=== PATIENT | male | born 1960 | race Caucasian/White ===

== ENCOUNTER 2024-04-28 16:52 | Observation (INO) ==
[2024-04-28 18:09] LABS: Basophils # (auto) 0.01 K/uL (0.00-0.20); Basophils % (auto) 0.1 %; Eosinophils # (auto) 0.05 K/uL (0.00-0.50); Eosinophils % (auto) 0.6 %; Hematocrit (blood only) 46.3 % (42.0-52.0); Hemoglobin 15.9 g/dl (14.0-18.0); Immature Granulocytes # (auto) 0.03 K/uL (0.01-0.20); Immature Granulocytes % (auto) 0.4 %; Lymphocytes # (auto) 2.66 K/uL (1.20-3.40); Lymphocytes % (auto) 32.4 %; Mean Corpuscular Hemoglobin 31.7 pg (25.0-34.0); Mean Corpuscular Hgb Conc 34.3 g/dL (32.0-36.0); Mean Corpuscular Volume 92.2 fL (80.0-100.0); Mean Platelet Volume 9.9 fL (9.4-12.4); Monocytes # (auto) 0.83 K/uL (0.11-0.59); Monocytes % (auto) 10.1 %; Neutrophils # (auto) 4.63 K/uL (1.40-6.50); Neutrophils % (auto) 56.4 %; Platelet Count 214 K/uL (130-400); RDW Coefficient of Variation 12.7 % (11.5-14.5); RDW Standard Deviation 42.7 fL (36.4-46.3); Red Blood Count 5.02 M/uL (4.70-6.10); White Blood Count 8.21 K/ul (4.8-10.8)
[2024-04-28 18:30] LABS: Albumin Globulin Ratio 1.9 (0.9-2); Albumin Level 4.4 gm/dl (3.4-5.0); BUN Creatinine Ratio 14.6 (10-20); Bilirubin,Total 1.4 mg/dl (0.2-1.0); Calcium 9.6 mg/dl (8.6-10.3); Creatinine Clr Calc Pharmacy 82.7 ml/min; Globulin 2.3 gm/dl (2.5-4.0); Potassium 3.8 mmol/L (3.5-5.1); Total Protein 6.7 gm/dl (6.0-8.3)
--- NOTE | 2024-04-28 18:40 | XRay Report ---
XR chest 1V not portable HISTORY: 64 years-old Male Chest pain, nonspecific COMPARISON: 09/11/2022 TECHNIQUE: PA view of the chest FINDINGS: Cardiomediastinal and hilar silhouettes are unchanged. No pneumothorax, pleural effusion, airspace co nsolidation or pulmonary edema. Mild linear left basilar atelectasis versus scarring. The bones appea r grossly intact. IMPRESSION: No acute process of the chest. ACT 112: Negative or not required by law. The above report was generated using voice recognition software. It may contain grammatical, syntax o r spelling errors. Electronically signed by: Anurag Quinteros M.D. 04/28/2024 6:39 PM
--- NOTE | 2024-04-28 18:42 | Emergency Department Note ---
Impression & Plan Chest pain ADMIT ED Provider Note HPI: History obtained from patient. The patient is a 64-year-old gentleman with history of atrial fibrillation, currently on Xarelto, who presents the emergency department for cardiac evaluation. Patient states that he had an outpatient appointment this morning at the [facility] for second opinion on whether or not he should get a cardiac ablation. Patient states that they did some lab work as part of his appointment today including a troponin level. Patient states he was contacted when he was driving home from [place] to [place] that his troponin level was elevated and he should go to the ER to be assessed. Patient states he has had some intermittent chest pain over the past 3 to 4 weeks. He states it does seem to correlate with exertion. On arrival here to the ED the patient is hemodynamically stable, he is not having any chest discomfort on my initial evaluation. Patient otherwise appears to be in no acute distress. ROS: - Per HPI Differential Diagnosis: Acute coronary syndrome, stable angina, musculoskeletal chest discomfort, atrial fibrillation with RVR, SVT, ventricular tachycardia, myocarditis, amongst other potential pathologies. *Outpatient medications and allergy history reviewed. PE: General: Alert HEENT: Normocephalic, trachea midline Eyes: Extraocular eye movement is intact, no scleral erythema Pulmonary: Clear to auscultation bilaterally, no wheezing Cardio: Regular rate and irregular rhythm GI: Abdomen is soft to palpation : No suprapubic tenderness MSK: No evidence of trauma or malformation of the extremities, no edema Skin: No evidence of rash Neuro: Alert, no focal deficits Psychiatric: Cooperative INDEPENDENT INTERPRETATIONS: monitoring coordinator: (As interpreted by myself): - An order was placed for continuous cardiac monitoring - Patient was noted to be in atrial fibrillation with a rate of 90 EKG: (As interpreted by myself): Rate: 93 Rhythm: Atrial fibrillation Intervals: Within normal limits ST changes: No ST elevation Time: 1741 Chest x-ray: (As interpreted by myself): No acute disease Interventions provided in ED: -Aspirin Medical Decision Making: IV was established and lab work obtained, patient was placed on front desk monitor. Lab work shows no leukocytosis, hemoglobin is normal, platelet count is normal, CMP does not show any evidence of any critical findings, troponin is noted to be negative. EKG per my interpretation shows atrial fibrillation that is rate controlled without any acute ischemic changes. Upon further history the patient states that he has had chest pain for the past several weeks and he states it does worsen with exertion. He tells me that in the outpatient setting today in [place] his troponin was elevated. He is on Eliquis, I have low suspicion for PE. Given the exertional nature of the patient's pain in addition to his reported history of elevated troponin earlier today, I do feel that he would benefit from admission for further testing and management. He tells me he does not remember the last time he had a stress test done. [facility] hospitalist service was consulted for admission, case was discussed with Dr. Hays, patient was placed for admission in stable condition. Consultants/Discussions held with other healthcare providers: -Hospitalist, Dr. Hays Disposition discussion held by myself with: -Patient Diagnosis: 1. Chest pain, acute Disposition: Admission Boo Goins DO Emergency Medicine Past Med/Surg History Problem List (Updated 04/29/24 @ 00:08 by Boo Goins DO) Chest pain (Acute) Elevated troponin GERD (gastroesophageal reflux disease) Dyspnea on exertion Fatigue Chest pain Hypertension Obesity (BMI 30-39.9) Hyperlipidemia LDL goal <70 Atrial fibrillation Medical History Atrial fibrillation Family History Other Family history non-contributory Social History Smoking Status: Never smoker Second Hand Exposure: No; Do You Dip or Chew Tobacco: No; Tobacco Cessation Education Requested by Patient: No Hx Alcohol Use: No Hx Substance Use: No Preferred Language: Khmer Communication Ability: Effective 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 Beliefs That Will Affect Care: None Current Living Situation: Spouse Other Information That Helps Us Care for You: No Feels Safe at Home: Yes Safety Concerns: Feels Safe At This Time Assistive Devices: Hearing Aid - Bilateral Allergies Allergies Allergy/AdvReac Type Severity Reaction Status Date / Time No Known Allergies Allergy Unverified 04/28/24 19:53 Home Meds Home Medications Medication Instructions Recorded Confirmed aspirin 81 mg tablet,delayed 81 mg PO QPM 04/28/24 04/28/24 release atorvastatin 80 mg tablet 80 mg PO HS 04/28/24 04/28/24 metoprolol succinate 50 mg 50 mg PO QAM 04/28/24 04/28/24 tablet,extended release 24 hr pantoprazole 40 mg tablet,delayed 40 mg PO QAM 04/28/24 04/28/24 release rivaroxaban 20 mg tablet (Xarelto) 20 mg PO QPM 04/28/24 04/28/24 Results & Data (ED) Vital Signs Vital Signs - 24 hr 04/28/24 17:11 04/28/24 19:05 04/28/24 19:15 Temperature 36.5 C Temperature Source Temporal Artery Scan Pulse Rate 107 H 18 L Pulse Rate [Left Radial] 94 H Pulse Rate from SpO2 Sensor Pulse Rhythm Regular Pulse Rhythm [Left Radial] Irregular Pulse Strength [Left Radial] Normal Respiratory Rate 18 18 17 Respiratory Effort / Characteristics Non-Labored Spontaneous Non-Labored Spontaneous Respiratory Depth Normal Normal Respiratory Pattern Regular Blood Pressure 126/74 Blood Pressure [Right Arm] 139/88 Blood Pressure Mean 91 Blood Pressure Mean [Right Arm] 105 Blood Pressure Position Sitting Blood Pressure Position [Right Arm] Lying Pulse Oximetry 98 95 97 Oxygen Delivery Method Room Air Room Air Room Air Sepsis Recent Fever Within 48 Hours No Sepsis New/Unexplained Change in Mental Status No Sepsis Action Taken by Nursing No Action Required 04/28/24 19:24 04/28/24 19:39 04/28/24 20:03 Temperature Temperature Source Pulse Rate 99 H 93 H 82 Pulse Rate [Left Radial] Pulse Rate from SpO2 Sensor 97 H 88 Pulse Rhythm Pulse Rhythm [Left Radial] Pulse Strength [Left Radial] Respiratory Rate 24 19 Respiratory Effort / Characteristics Respiratory Depth Respiratory Pattern Blood Pressure Blood Pressure [Right Arm] Blood Pressure Mean Blood Pressure Mean [Right Arm] Blood Pressure Position Blood Pressure Position [Right Arm] Pulse Oximetry 96 96 Oxygen Delivery Method Sepsis Recent Fever Within 48 Hours Sepsis New/Unexplained Change in Mental Status Sepsis Action Taken by Nursing 04/28/24 20:33 Temperature Temperature Source Pulse Rate 97 H Pulse Rate [Left Radial] Pulse Rate from SpO2 Sensor 98 H Pulse Rhythm Pulse Rhythm [Left Radial] Pulse Strength [Left Radial] Respiratory Rate 18 Respiratory Effort / Characteristics Respiratory Depth Respiratory Pattern Blood Pressure Blood Pressure [Right Arm] Blood Pressure Mean Blood Pressure Mean [Right Arm] Blood Pressure Position Blood Pressure Position [Right Arm] Pulse Oximetry 94 Oxygen Delivery Method Sepsis Recent Fever Within 48 Hours Sepsis New/Unexplained Change in Mental Status Sepsis Action Taken by Nursing Laboratory Data 04/28/24 17:40 04/28/24 17:40 Lab Results 04/28/24 Range/Units 17:40 WBC 8.21 (4.8-10.8) K/ul RBC 5.02 (4.70-6.10) M/uL Hgb 15.9 (14.0-18.0) g/dl Hct 46.3 (42.0-52.0) % MCV 92.2 (80.0-100.0) fL MCH 31.7 (25.0-34.0) pg MCHC 34.3 (32.0-36.0) g/dL RDW Std Deviation 42.7 (36.4-46.3) fL RDW Coeff of Debbi 12.7 (11.5-14.5) % Plt Count 214 (130-400) K/uL MPV 9.9 (9.4-12.4) fL Immature Gran % (Auto) 0.4 % Neut % (Auto) 56.4 % Lymph % (Auto) 32.4 % [place] % (Auto) 10.1 % Eos % (Auto) 0.6 % Baso % (Auto) 0.1 % Neut # (Auto) 4.63 (1.40-6.50) K/uL Lymph # (Auto) 2.66 (1.20-3.40) K/uL [place] # (Auto) 0.83 H (0.11-0.59) K/uL Eos # (Auto) 0.05 (0.00-0.50) K/uL Baso # (Auto) 0.01 (0.00-0.20) K/uL Immature Gran # (Auto) 0.03 (0.01-0.20) K/uL PT 12.1 H (9.0-12.0) Seconds INR 1.1 (0.9-1.1) APTT 31 (21-31) Seconds PTT Ratio 1.2 Sodium 143 (136-145) mmol/L Potassium 3.8 (3.5-5.1) mmol/L Chloride 107 (98-107) mmol/L Carbon Dioxide 28 (21-32) mmol/L Anion Gap 8 (3-11) BUN 18 (6-23) mg/dl Creatinine 1.23 (0.6-1.4) mg/dl Est Cr Clr Drug Dosing 82.7 ml/min eGFR 65.97 BUN/Creatinine Ratio 14.6 (10-20) Glucose 106 H (70-99(Fasting)) mg/dl Calcium 9.6 (8.6-10.3) mg/dl Magnesium 2.3 (1.7-2.4) mg/dl Total Bilirubin 1.4 H (0.2-1.0) mg/dl AST 23 (13-39) U/L ALT 23 (7-52) U/L Alkaline Phosphatase 63 (34-104) U/L Troponin I High Sens 3.6 (0-20) pg/ml Total Protein 6.7 (6.0-8.3) gm/dl Albumin 4.4 (3.4-5.0) gm/dl Globulin 2.3 L (2.5-4.0) gm/dl Albumin/Globulin Ratio 1.9 (0.9-2) Administered Medications Nitroglycerin (Nitroglycerin 2% Ointment 30gm Tube) 0.5 inch EXT Q6H [facility] Stop: 05/28/24 21:29 Last Admin: 04/28/24 21:44 Dose: 0.5 inch Documented By: JOSEPH Discontinued Medications Aspirin (Aspirin Chew 324 Mg) 324 mg PO NOW STA Stop: 04/28/24 19:33 Last Admin: 04/28/24 19:50 Dose: 324 mg Documented By: JOSEPH Nitroglycerin (Nitroglycerin 2% Ointment 30gm Tube) Confirm Administered Dose 18 inch EXT .STK-MED ONE Stop: 04/28/24 21:43 Last Admin: 04/28/24 21:50 Dose: Not Given Documented By: JOSEPH Rivaroxaban (Rivaroxaban 20 Mg Tab) 20 mg PO NOW STA Stop: 04/28/24 21:15 Last Admin: 04/28/24 21:54 Dose: 20 mg Documented By: JOSEPH Imaging Data Radiologist's Impression: Chest X-Ray 04/28/24 17:15 XR chest 1V not portable HISTORY: 64 years-old Male Chest pain, nonspecific COMPARISON: 09/11/2022 TECHNIQUE: PA view of the chest FINDINGS: Cardiomediastinal and hilar silhouettes are unchanged. No pneumothorax, pleural effusion, airspace consolidation or pulmonary edema. Mild linear left basilar atelectasis versus scarring. The bones appear grossly intact. IMPRESSION: No acute process of the chest. ACT 112: Negative or not required by law. The above report was generated using voice recognition software. It may contain grammatical, syntax or spelling errors. Electronically signed by: Anurag Quinteros M.D. 04/28/2024 6:39 PM Discharge Plan Visit Data Chief Complaint: Referred by Doctor Stated Complaint: BLOOD WORK REDO ED Provider: Boo Goins Discharge Problem: Chest pain Patient Disposition: Admitted As Inpatient Discharge Instructions Interventions: ED Discharge Assessment Last Done: 04/28/24 23:14 Discharge Problem: Chest pain Qualifiers: Chest pain type: unspecified Qualified Code(s): R07.9 - Chest pain, unspecified
[2024-04-28 18:43] LABS: INR 1.1 (0.9-1.1); Partial Thromboplastin Ratio 1.2; Partial Thromboplastin Time 31 Seconds (21-31); Prothrombin Time 12.1 Seconds (9.0-12.0)
[2024-04-28 18:52] LABS: Troponin I High Sensitivity 3.6 pg/ml (0-20)
[2024-04-28 18:54] LABS: Magnesium 2.3 mg/dl (1.7-2.4)
[2024-04-28] MEDS: ASPIRIN CHEW 324 MG PO STA (19:50)
--- NOTE | 2024-04-28 21:35 | History & Physical Report ---
Date of Service April 28, 2024 Assessment & Plan (1) Atrial fibrillation: (2) Hyperlipidemia LDL goal <70: (3) Obesity (BMI 30-39.9): (4) Hypertension: (5) Chest pain: (6) Fatigue: (7) Dyspnea on exertion: (8) GERD (gastroesophageal reflux disease): (9) Elevated troponin: Plan Elevated troponin/chest pain/dyspnea on exertion/chronic atrial fibrillation/EF 45%- The patient will be admitted to telemetry for serial cardiac enzymes, serial EKG's, cardiac rhythm monitoring and a 2-D echocardiogram with Dopplers. Troponin reportedly was 24 done at the [facility] earlier in the day today, however, is 3.6 on ED labs this evening, and will follow-up per protocol EKG shows atrial fibrillation with rate 93, left axis deviation, and no acute ST-T changes Schedule a stress echocardiogram for the morning Continue metoprolol succinate 50 mg every morning, Xarelto 20 mg every evening, and aspirin 81 mg every evening Patient was given aspirin 324 mg in the ED Start Nitropaste 0.5 mg every 6 hours anterior chest wall Hyperlipidemia- Continue atorvastatin 80 mg at bedtime GERD- Continue pantoprazole 40 mg every morning History of Present Illness Chief Complaint: The patient presents to the emergency department as a referral from Dr. Davy Dimas of [facility], where he had report of an elevated troponin to 24, that he heard about on his way home to [place], and was advised to come to an ED for assessment. Primary Care Provider: KIKA DELGADO The patient is a 64-year-old male with a known past medical history including atrial fibrillation on Xarelto, GERD, hypertension, hyperlipidemia and morbid obesity. He presents to the emergency department after being told that he had elevated troponin of 24, that was performed at [facility] this morning, due to his history of atrial fibrillation, chest pain, shortness of breath, dyspnea on exertion. He had gone to [facility] for second opinion regarding a potential ablation procedure. He had previously been seen by Dr. Ferrell of [facility] on 03/20/2024. He reports that he has had fatigue, and progressive shortness of breath with dyspnea on exertion over the past 2 to 3 weeks. He does report that he has had chest discomfort intermittently over the past few months. He has had and intentional 10 pound weight loss over the past 6 weeks, by eating less. Allergies Allergy/AdvReac Type Severity Reaction Status Date / Time No Known Allergies Allergy Unverified 04/28/24 19:53 Home Medications Medication Instructions Recorded Confirmed Type aspirin 81 mg tablet,delayed 81 mg PO QPM 04/28/24 04/28/24 History release atorvastatin 80 mg tablet 80 mg PO HS 04/28/24 04/28/24 History metoprolol succinate 50 mg 50 mg PO QAM 04/28/24 04/28/24 History tablet,extended release 24 hr pantoprazole 40 mg tablet,delayed 40 mg PO QAM 04/28/24 04/28/24 History release rivaroxaban 20 mg tablet (Xarelto) 20 mg PO QPM 04/28/24 04/28/24 History Past Med/Surg History Problem List (Updated 04/28/24 @ 21:31 by Alan Hays MD) Elevated troponin GERD (gastroesophageal reflux disease) Dyspnea on exertion Fatigue Chest pain Hypertension Obesity (BMI 30-39.9) Hyperlipidemia LDL goal <70 Atrial fibrillation Medical History Atrial fibrillation Family History Other Family history non-contributory Social History Smoking Status: Never smoker Preferred Language: Yoruba Feels Safe at Home: Yes Review of Systems Review of Systems: The patient denies palpitations, cough, lower extremity swelling, sore throat, fevers, chills, sweats, nausea, vomiting, diarrhea , constipation, abdominal pain, pelvic pain, blood in urine or stool, dysuria, urinary frequency or urgency, lightheadedness, dizziness, headache, memory loss, loss of consciousness, rash, abnormal bruising or bleeding, imbalance, focal or generalized weakness, numbness or tingling in arms or legs, generalized arthralgias or myalgias, back or neck pain, or night sweats. The review of systems is otherwise negative other than for that already noted above, and at least 10 systems have been reviewed. Physical Exam Physical Exam: The patient is awake, alert and oriented 3, well developed and well nourished, normocephalic and atraumatic, lying in bed and in no acute distress. HEENT--PERRL, EOMI, mucous membranes and oropharynx normal Neck--supple. No JVD. No bruits. Thyroid normal, trachea midline, no adenopathy. Heart--irregularly irregular with normal rate. No murmurs, rubs or gallops. Lungs--clear bilaterally, no respiratory distress, no accessory muscle use. Abdomen--normal bowel sounds and soft. Nontender. Nondistended. Obese Extremities--no cyanosis or clubbing. No edema. There are good distal pulses b/l. Dermatologic--normal skin turgor, normal color, no abnormal lymph nodes, no rash. Neurologic--cranial nerves II through XII grossly intact. Rheumatologic--normal range of motion. Psychiatric--normal affect. Results & Data Results & Data Vital Signs (Past 12 Hours) Vital Signs Temp Pulse Pulse Resp BP BP Pulse Ox 04/28/24 19:39 93 H 04/28/24 19:15 18 L 17 97 04/28/24 19:05 94 H 18 139/88 95 04/28/24 17:11 36.5 C 107 H 18 126/74 98 O2 Del Method 04/28/24 19:39 04/28/24 19:15 Room Air 04/28/24 19:05 Room Air 04/28/24 17:11 Room Air Laboratory Results Laboratory Results WBC 8.21 K/ul (4.8-10.8) 04/28/24 17:40 RBC 5.02 M/uL (4.70-6.10) 04/28/24 17:40 Hgb 15.9 g/dl (14.0-18.0) 04/28/24 17:40 Hct 46.3 % (42.0-52.0) 04/28/24 17:40 MCV 92.2 fL (80.0-100.0) 04/28/24 17:40 MCH 31.7 pg (25.0-34.0) 04/28/24 17:40 MCHC 34.3 g/dL (32.0-36.0) 04/28/24 17:40 RDW Std Deviation 42.7 fL (36.4-46.3) 04/28/24 17:40 RDW Coeff of Debbi 12.7 % (11.5-14.5) 04/28/24 17:40 Plt Count 214 K/uL (130-400) 04/28/24 17:40 MPV 9.9 fL (9.4-12.4) 04/28/24 17:40 Immature Gran % (Auto) 0.4 % 04/28/24 17:40 Neut % (Auto) 56.4 % 04/28/24 17:40 Lymph % (Auto) 32.4 % 04/28/24 17:40 [place] % (Auto) 10.1 % 04/28/24 17:40 Eos % (Auto) 0.6 % 04/28/24 17:40 Baso % (Auto) 0.1 % 04/28/24 17:40 Neut # (Auto) 4.63 K/uL (1.40-6.50) 04/28/24 17:40 Lymph # (Auto) 2.66 K/uL (1.20-3.40) 04/28/24 17:40 [place] # (Auto) 0.83 K/uL (0.11-0.59) H 04/28/24 17:40 Eos # (Auto) 0.05 K/uL (0.00-0.50) 04/28/24 17:40 Baso # (Auto) 0.01 K/uL (0.00-0.20) 04/28/24 17:40 Immature Gran # (Auto) 0.03 K/uL (0.01-0.20) 04/28/24 17:40 PT 12.1 Seconds (9.0-12.0) H 04/28/24 17:40 INR 1.1 (0.9-1.1) 04/28/24 17:40 APTT 31 Seconds (21-31) 04/28/24 17:40 PTT Ratio 1.2 04/28/24 17:40 Sodium 143 mmol/L (136-145) 04/28/24 17:40 Potassium 3.8 mmol/L (3.5-5.1) 04/28/24 17:40 Chloride 107 mmol/L (98-107) 04/28/24 17:40 Carbon Dioxide 28 mmol/L (21-32) 04/28/24 17:40 Anion Gap 8 (3-11) 04/28/24 17:40 BUN 18 mg/dl (6-23) 04/28/24 17:40 Creatinine 1.23 mg/dl (0.6-1.4) 04/28/24 17:40 Est Cr Clr Drug Dosing 82.7 ml/min 04/28/24 17:40 eGFR 65.97 04/28/24 17:40 BUN/Creatinine Ratio 14.6 (10-20) 04/28/24 17:40 Glucose 106 mg/dl (70-99(Fasting)) H 04/28/24 17:40 Calcium 9.6 mg/dl (8.6-10.3) 04/28/24 17:40 Magnesium 2.3 mg/dl (1.7-2.4) 04/28/24 17:40 Total Bilirubin 1.4 mg/dl (0.2-1.0) H 04/28/24 17:40 AST 23 U/L (13-39) 04/28/24 17:40 ALT 23 U/L (7-52) 04/28/24 17:40 Alkaline Phosphatase 63 U/L (34-104) 04/28/24 17:40 Troponin I High Sens 3.6 pg/ml (0-20) 04/28/24 17:40 Total Protein 6.7 gm/dl (6.0-8.3) 04/28/24 17:40 Albumin 4.4 gm/dl (3.4-5.0) 04/28/24 17:40 Globulin 2.3 gm/dl (2.5-4.0) L 04/28/24 17:40 Albumin/Globulin Ratio 1.9 (0.9-2) 04/28/24 17:40 Impressions Chest X-Ray 04/28/24 17:15 XR chest 1V not portable HISTORY: 64 years-old Male Chest pain, nonspecific COMPARISON: 09/11/2022 TECHNIQUE: PA view of the chest FINDINGS: Cardiomediastinal and hilar silhouettes are unchanged. No pneumothorax, pleural effusion, airspace consolidation or pulmonary edema. Mild linear left basilar atelectasis versus scarring. The bones appear grossly intact. IMPRESSION: No acute process of the chest. ACT 112: Negative or not required by law. The above report was generated using voice recognition software. It may contain grammatical, syntax or spelling errors. Electronically signed by: Anurag Quinteros M.D. 04/28/2024 6:39 PM Code Status & VTE Plan Code Status Full code VTE Prophylaxis Plan VTE Prophylaxis will be ordered: Yes PG Care Time/CCT Total # of Minutes Spent Total Time Spent with Patient: Total time spent is greater than 50% in coordination of care (as documented) at patient's floor/unit and/or counseling patient: Coding Level of Care Code 33404 INT INP/OBS CARE 3/75MIN Diagnoses Atrial fibrillation I48.91 Hyperlipidemia LDL goal <70 E78.5 Obesity (BMI 30-39.9) E66.9 Hypertension I10 Chest pain R07.9 Fatigue R53.83 Dyspnea on exertion R06.09 GERD (gastroesophageal reflux disease) K21.9 Elevated troponin R79.89
[2024-04-28] MEDS: NITROGLYCERIN 2% OINTMENT 30GM TUBE EXT SCH (21:44)
[2024-04-28] MEDS: NITROGLYCERIN 2% OINTMENT 30GM TUBE EXT ONE (21:50)
[2024-04-28] MEDS: RIVAROXABAN 20 MG TAB PO STA (21:54)
[2024-04-28] MEDS ORDERED: ONDANSETRON INJ 2 MG/ML 2 ML VIAL IV PRN (23:47)
[2024-04-28] MEDS ORDERED: ACETAMINOPHEN 325 MG TAB PO PRN (23:47)
[2024-04-29] MEDS: SODIUM CHLORIDE 0.9% 1,000 ML IV SCH (00:34)
--- OUTSIDE RECORDS SUMMARY | 2024-04-29 04:37 | External Medical Summary | Continuity of Care Document ---
Author Name Unknown Organization [facility] [address] Address [address] [place], [place] [id number] [id number] Date(s): 02/06/24 - 02/06/24 [facility] [address], [address] [place] [address] [phone] Discharge Disposition: Home or Self Care Attending Physician: CHRISTIAN Soria Sarah A Referring Physician: CHRISTIAN Soria Sarah A Allergies, Adverse Reactions, Alerts No Known Allergies Medications aspirin 81 mg oral delayed release tablet Start: 02/22/23 1:29:00 PM EDT, 1 tab, PO, Daily, Disp# 90 tab, Refills: 3, Pharmacy: [id number] Start Date: 02/22/23 Status: Ordered atorvastatin 80 mg oral tablet Start: 01/03/24 9:27:00 AM EDT, 1 tab, PO, qhs, Disp# 90 tab, Refills: 3, Pharmacy: [id number] Start Date: 01/03/24 Status: Ordered furosemide 20 mg oral tablet Start: 04/20/23 3:28:00 PM EDT, See Instructions, Disp# 90 tab, Refills: 3, 1 tab PO Daily for weight gain 2 lbs in 24 hours or 5 lbs in a week until back to baseline, Pharmacy: [id number] Start Date: 04/20/23 Status: Ordered Metoprolol Succinate ER 50 mg oral tablet, extended release Start: 10/29/23 9:22:00 AM EDT, 1 tab, PO, Daily, Disp# 90 tab, Refills: 3, Pharmacy: [id number] Start Date: 10/29/23 Status: Ordered pantoprazole 40 mg oral delayed release tablet Start: 08/07/23 10:24:00 AM EST, 1 tab, PO, Daily, Disp# 30 tab, Refills: 3, Pharmacy: [id number] Start Date: 08/07/23 Status: Ordered rivaroxaban 20 mg oral tablet Start: 02/22/23 1:52:00 PM EDT, 1 tab, PO, qPM, Disp# 90 tab, Refills: 3 Start Date: 02/22/23 Status: Ordered Zetia 10 mg oral tablet Start: 02/22/23 1:45:00 PM EDT, 1 tab, PO, Daily, Disp# 90 tab, Refills: 3, Pharmacy: [id number] Start Date: 02/22/23 Status: Ordered Problem List Condition Confirmation Course Effective Dates Status Health St atus Informant New onset of headaches after age 51 Confirmed Active Results Radiology Reports * Exam Date Time Procedure Performing Provider Status 02/06/24 8:54 AM Echo TransTHORacic TTE Complete w/ Con Barbara Ying; Final Notes: (Echo TransTHORacic TTE Complete w/ Cont) Reason For Exam: cad, afib Echo TransTHORacic TTE Complete w/ Cont Report Signatures Finalized by Dr. Nino Esqueda MD on 02/07/2024 12:45 PM [place] Act 112: Yes - Discussed with patient Summary 1. Technically difficult study due to patient body habitus; Successfully enhanced with Definity contrast per lab protocol for better endocardial definition. 2. Mildly dilated left ventricle for BSA. 3. Global hypokinesis with no regional wall motion abnormalities. 4. Mildly reduced systolic function, ejection fraction calculated by Biplane Almeida's method is 45-50%. 5. No left ventricular hypertrophy. 6. Moderately dilated left atrium. 7. Moderately dilated right ventricle with normal systolic function. 8. Moderate to severely dilated right atrium. 9. Mild prolapse of the posterior mitral valve leaflet with mild eccentric mitral regurgitation. 10. Unable to estimate the pulmonary artery systolic pressure due to insufficient TR. 11. Estimated pulmonary arterial mean pressure is 14 mmHg. 12. Compared to 02/2023 the LV fxn has declined from 55% to 45%. Patient Info Name: MANUEL HOWARD Age: 63 years : 1960 Gender: Male Ht: 180 cm Wt: 122 kg BSA: 2.52 m2 BP: 162 / 88 mmHg Heart Rhythm: Atrial Fibrillation Technical Quality: Good Exam Date: 02/06/2024 8:19 AM Exam Location: [facility] Patient Status: Outpatient Staff Ordering Physician: Sharla Soria [place] Supervisor: Barbara Escobar RDCS, RVT Attending Physician: Sharla Soria Study Info [facility] [id number] - [id number] - Indications I2510 - Coronary artery disease without angina pectoris I480 - Atrial fibrillation Procedure(s) * A complete two-dimensional, color flow and Doppler transthoracic echocardiogram was performed. * Failed 2D images were enhanced with Definity per lab protocol. * [place] Supervisor, Barbara Escobar RDCS, RVT, provided education about ultrasound enhancing agent to the patient. Exam Type: Cardiac Basic Left Ventricle Mildly dilated left ventricle for BSA. Global hypokinesis with no regional wall motion abnormalities. Mildly reduced systolic function, ejection fraction calculated by Biplane Almeida's method is 45-50%. No left ventricular hypertrophy. Indeterminate LV diastolic function. Right Ventricle Moderately dilated right ventricle with normal systolic function. TAPSE is normal, 2.1 cm. Left Atrium Moderately dilated left atrium. Right Atrium Moderate to severely dilated right atrium. Atrial Septum Patent foramen ovale with [id number]-[id number] shunt seen by color Doppler. Aortic Valve Tricuspid aortic valve without stenosis. Pulmonic Valve Structurally normal pulmonic valve. Trace to mild pulmonic insufficiency. Estimated pulmonary arterial mean pressure is 14 mmHg. Mitral Valve Mild prolapse of the posterior mitral valve leaflet with mild eccentric mitral regurgitation. Tricuspid Valve Unremarkable tricuspid valve. Unable to estimate the pulmonary artery systolic pressure due to insufficient TR. Pericardium/Pleural No pericardial effusion. Inferior Vena Cava Normal IVC size and inspiratory collapse. Estimated right atrial pressure is 3 mmHg. Aorta Normal size aortic root (for BSA), ascending aorta (for BSA) and aortic arch. Calcified aortic root and sinotubular junction. Left Ventricular Outflow Tract Name Value Normal LVOT 2D LVOT Diameter 2.4 cm LVOT Doppler LVOT Peak Velocity 0.74 m/s LVOT Peak Gradient 3 mmHg LVOT Mean Gradient 1 mmHg LVOT VTI 16.17 cm LVOT Stroke Volume 72.75 ml LVOT Stroke Volume Index 0.03 l/m2 Pulmonic Valve Name Value Normal PV 2D RVOT Diameter (2D) 2.9 cm 1.7-2.7 RVOT Doppler RVOT Peak Velocity 0.49 m/s RVOT Peak Gradient 1 mmHg PV Doppler PV Peak Gradient 2 mmHg PV Regurgitation Doppler KS Peak Velocity 1.66 m/s Mitral Valve Name Value Normal MV Doppler MV PHT 41 ms MV Diastolic Function MV E Peak Velocity 0.96 m/s <=0.50 MV Decel Time 141 ms MV Annular TDI MV Septal s' Velocity 5.70 cm/s MV Septal e' Velocity 6.85 cm/s >=7.00 MV E/e' (Septal) 14.1 <=8.0 MV Lateral s' Velocity 6.75 cm/s MV Lateral e' Velocity 10.48 cm/s >=10.00 MV E/e' (Lateral) 9.19 <=8.00 MV e' Average 8.66 MV E/e' (Average) 11.62 <=14.00 Tricuspid Valve Name Value Normal Estimated PAP/RSVP RA Pressure 3 mmHg <=5 PA Mean Pressure (KS Velocity) 14 mmHg TV Diastolic Function TV E Peak Velocity 0.37 m/s TV Decel Time 241 ms >=120 TV Annular TDI TV Lateral Bouchra s' Velocity 16.2 cm/s 9.5-18.7 TV Lateral Bouchra e' Velocity 23.1 cm/s <7.8 TV E/e' 1.60 2.00-6.00 Aorta Name Value Normal Ascending Aorta Sinus of Valsalva Diameter 3.5 cm 3.1-3.7 Sinus of Valsalva Index 1.39 cm/m2 1.50-1.90 Prox Asc Ao Diameter 4.0 cm 2.6-3.4 Prox Asc Ao Diameter Index 1.60 cm/m2 1.30-1.70 Thoracic Aorta Ao Arch Diameter 3.1 cm Venous Name Value Normal IVC/SVC IVC Diameter (Insp 2D) 0.9 cm IVC Diameter (Exp 2D) 2.1 cm <=2.1 IVC Diameter Percent Change (2D) 57 % >=50 Aortic Valve Name Value Normal AV Doppler AV Peak Velocity 1.03 m/s <2.00 AV Peak Gradient 4 mmHg AV Area (Cont Eq Guilherme) 3.2 cm2 AV Area Index (Cont Eq Guilherme) 1.28 cm2/m2 AV V1/V2 Ratio 0.72 AV Regurgitation 2D LVOT Area 4.5 cm2 Ventricles Name Value Normal LV Dimensions 2D/MM IVS Diastolic Thickness (2D) 1.0 cm 0.6-1.0 LVID Diastole (2D) 5.0 cm 3.6-5.6 LVIW Diastolic Thickness (2D) 1.0 cm 0.6-1.0 LVID Systole (2D) 3.8 cm 2.5-4.0 LVOT Diameter 2.4 cm LV Mass (2D Cubed) 185.60 g 88.00-224.00 LV Mass Index (2D Cubed) 0.01 g/cm2 0.00-0.01 Relative Wall Thickness (2D) 0.39 LV Fractional Shortening/Ejection Fraction 2D/MM LV Fractional Shortening (2D) 25 % 25-43 LV EF (2D Teicholz) 49 % 52-100 LV Diastolic Volume (4C MOD) 222 ml LV Diastolic Volume (2C MOD) 206 ml LV Diastolic Volume (BP MOD) 213 ml 62-150 LV Diastolic Volume Index (BP MOD) 84.48 ml/m2 34.00-74.00 LV Systolic Volume (BP MOD) 119 ml 21-61 LV Systolic Volume Index (BP MOD) 47.09 ml/m2 11.00-31.00 LV EF (BP MOD) 45 % 57-68 LV SV (BP MOD) 94.40 ml RV Dimensions 2D/MM RV Basal Diastolic Dimension 5.0 cm 2.5-4.1 TAPSE 2.1 cm >=1.7 Atria Name Value Normal LA Dimensions LA Area (4C) 30.8 cm2 LA Length (4C) 6.8 cm LA Area (2C) 32.2 cm2 LA Length (2C) 6.7 cm LA Volume (4C A-L) 118.47 ml LA Volume (2C A-L) 131.06 ml LA Volume (BP A-L) 126 ml 18-58 LA Volume Index (BP A-L) 49.73 ml/m2 <=34.00 RA Dimensions RA Area (4C) 32.4 cm2 <=18.0 Final Signed by:DO Esqueda Jason D Signed (Electronic Signature):02/06/2024 8:19 a Social History Social History Type Response Smoking Status Never smoked cigaret gaetano Sex Male
--- OUTSIDE RECORDS SUMMARY | 2024-04-29 04:37 | External Medical Summary | Continuity of Care Document ---
Author Name Unknown Organization [facility] [address] Address [address] [place], [place] [id number] Encounter [facility] [id number] Date(s): 03/20/24 - 03/20/24 [facility] [address], [address] [place] [address] [phone] Encounter Diagnosis Atrial fibrillation(Discharge Diagnosis) - 03/20/24 Heart failure(Discharge Diagnosis) - 03/20/24 Discharge Disposition: Home or Self Care Attending Physician: MD Mariaelena, Kindra Arredondo Referring Physician: CHRISTIAN Soria Sarah A Allergies, Adverse Reactions, Alerts No Known Allergies Medications aspirin 81 mg oral delayed release tablet Start: 02/22/23 1:29:00 PM EDT, 1 tab, PO, Daily, Disp# 90 tab, Refills: 3, Pharmacy: [id number] Start Date: 02/22/23 Status: Ordered atorvastatin 80 mg oral tablet Start: 01/03/24 9:27:00 AM EDT, 1 tab, PO, qhs, Disp# 90 tab, Refills: 3, Pharmacy: [id number] Start Date: 01/03/24 Status: Ordered furosemide 20 mg oral tablet Start: 04/20/23 3:28:00 PM EDT, See Instructions, Disp# 90 tab, Refills: 3, 1 tab PO Daily for weight gain 2 lbs in 24 hours or 5 lbs in a week until back to baseline, Pharmacy: [id number] Start Date: 04/20/23 Status: Ordered Metoprolol Succinate ER 50 mg oral tablet, extended release Start: 10/29/23 9:22:00 AM EDT, 1 tab, PO, Daily, Disp# 90 tab, Refills: 3, Pharmacy: [id number] Start Date: 10/29/23 Status: Ordered pantoprazole 40 mg oral delayed release tablet Start: 08/07/23 10:24:00 AM EST, 1 tab, PO, Daily, Disp# 30 tab, Refills: 3, Pharmacy: [id number] Start Date: 08/07/23 Status: Ordered rivaroxaban 20 mg oral tablet Start: 02/22/23 1:52:00 PM EDT, 1 tab, PO, qPM, Disp# 90 tab, Refills: 3 Start Date: 02/22/23 Status: Ordered Mental Status 03/20/24 Barriers to Learning one year None evide nt, Acuity of illness, Cognitive deficit Mandatory Health Literacy Documentation Yes Health Literacy Communication Barriers N ever Primary Language Brazilian Problem List Condition Confirmation Course Effective Dates Status Health St at[facility] Informant New onset of headaches after age 51 Confirmed Active Diagnosis Diagnosis Type Effective Dates Health Status Clinical Service Informant Atrial fibrillation Discharge Diagnosis 03/20/24 Heart failure Discharge Diagnosis 03/20/24 Vital Signs Most recent to oldest [Reference Range]: 1 Patient Weight 125.2 kg (03/20/24 11:52 AM) Heart Rate 88 bpm (03/20/24 11:52 AM) Respiratory Rate 18 br/min (03/20/24 11:52 AM) Blood Pressure 96/62mmHg (03/20/24 11:52 AM) Cuff Pulse Pressure 34 mmHg (03/20/24 11:52 AM) Social History Social History Type Response Smoking Status Never smoked cigaret gaetano Sex Male Sex Representation Male (finding)
--- OUTSIDE RECORDS SUMMARY | 2024-04-29 04:37 | External Medical Summary | Continuity of Care Document ---
Author Name Unknown Organization [facility] [address] Address [address] [place], [place] [id number] [id number] Date(s): 02/08/24 - 02/08/24 [facility] [address], [address] [place] [address] [phone] Encounter Diagnosis Afib(Discharge Diagnosis) - 02/08/24 Non-ischemic cardiomyopathy(Discharge Diagnosis) - 02/08/24 HTN (hypertension)(Discharge Diagnosis) - 02/08/24 Anticoagulated(Discharge Diagnosis) - 02/08/24 Discharge Disposition: Home or Self Care Attending Physician: CHRISTIAN Soria Sarah A Referring Physician: CHRISTIAN Soria Sarah A Allergies, Adverse Reactions, Alerts No Known Allergies Assessment and Plan Extracted from: Title:Cardiology Office Visit Note Author:CHRISTIAN Dsouza rd, Sarah A Date:02/08/24 Impression: 1. Chronic afib s/p cardioversion about 8 years ago 2. s/p cardiac catheterization for NH 12/10/2020 showingright coronary artery with mild disease, left main with no disease, LAD with mild disease, left circumflex with mild disease, distal portion of second posterior lateral branch abrupt cut off, not amenable to PCI, lesion felt to be most consistent with embolization at the time patient was in A-fib and had not been on anticoagulation 3. Echocardiogram November 2020 with ejection fraction of 40 to 45%, then rebounded to normal 55% in 2022, most recent echo 2023with again reduced EF 45%, Global hypokinesis with no regional wall motion abnormalities, Mild prolapse of the posterior mitral valve leaflet with mild eccentric mitral regurgitation. 4. Bilateral lower extremity edema investigated with Doppler 02/09/2022 and was negative for DVT 5. CT of the brain for dizziness and headache which was negative, done February 08, 2022 Mr. Medel's chest pain is musculoskeletal. I did reviewed his most recent echo with him which shows that his EF is back to 45%. I discussed with him that I would like him to start Entresto and we reviewed benefits. He would likely qualify for financial assistance from [employer] if he decides to start this medicine. He would like to talk to his about it first. His rate is controlled in afib but with his reduction in EF, I think it would be reasonable to give it a try keeping him in sinus rhythm. However, this may not be possible given his severely dilated atrium. I will place a consult for EP. He remains on anticoagulation for stroke prevention. His blood pressure is controlled. He returns to the clinic in July Medications aspirin 81 mg oral delayed release tablet Start: 02/22/23 1:29:00 PM EDT, 1 tab, PO, Daily, Disp# 90 tab, Refills: 3, Pharmacy: [id number] Start Date: 02/22/23 Status: Ordered atorvastatin 80 mg oral tablet Start: 01/03/24 9:27:00 AM EDT, 1 tab, PO, qhs, Disp# 90 tab, Refills: 3, Pharmacy: [id number] Start Date: 01/03/24 Status: Ordered furosemide 20 mg oral tablet Start: 04/20/23 3:28:00 PM EDT, See Instructions, Disp# 90 tab, Refills: 3, 1 tab PO Daily for weight gain 2 lbs in 24 hours or 5 lbs in a week until back to baseline, Pharmacy: [id number] Start Date: 04/20/23 Status: Ordered Metoprolol Succinate ER 50 mg oral tablet, extended release Start: 10/29/23 9:22:00 AM EDT, 1 tab, PO, Daily, Disp# 90 tab, Refills: 3, Pharmacy: [id number] Start Date: 10/29/23 Status: Ordered pantoprazole 40 mg oral delayed release tablet Start: 08/07/23 10:24:00 AM EST, 1 tab, PO, Daily, Disp# 30 tab, Refills: 3, Pharmacy: [id number] Start Date: 08/07/23 Status: Ordered rivaroxaban 20 mg oral tablet Start: 02/22/23 1:52:00 PM EDT, 1 tab, PO, qPM, Disp# 90 tab, Refills: 3 Start Date: 02/22/23 Status: Ordered Zetia 10 mg oral tablet Start: 02/22/23 1:45:00 PM EDT, 1 tab, PO, Daily, Disp# 90 tab, Refills: 3, Pharmacy: [id number] Start Date: 02/22/23 Status: Ordered Mental Status 02/08/24 Barriers to Learning one year None evide nt, Acuity of illness, Cognitive deficit Mandatory Health Literacy Documentation Yes Health Literacy Communication Barriers N ever Primary Language Yakut Problem List Condition Confirmation Course Effective Dates Status Health St atus Informant New onset of headaches after age 51 Confirmed Active Diagnosis Diagnosis Type Effective Dates Health Status Clinical Service Informant Afib Discharge Diagnosis 02/08/24 Non-Specified Non-ischemic cardiomyopathy Discharge Diagnosis 02/08/24 Non-Specified Anticoagulated Discharge Diagnosis 02/08/24 Non-Specified HTN (hypertension) Discharge Diagnosis 02/08/24 Non-Specified Vital Signs Most recent to oldest [Reference Range]: 1 Heart Rate 81 bpm (02/08/24 8:29 AM) Respiratory Rate 18 br/min (02/08/24 8:29 AM) Blood Pressure 132/78mmHg (02/08/24 8:29 AM) BP Location # 1 Left Arm (02/08/24 8:29 AM) Social History Social History Type Response Smoking Status Never smoked cigaret gaetano Sex Male Cardiology * Contributor_system, MUSE01: VERIFY, PERFORM Event Display: EKG Authored Date: Please click on link to see image. Cardiology Outpatient Note * CHRISTIAN Soria Sarah A: PERFORM, MODIFY, MODIFY, MODIFY Event Display: Cardiology Outpt Note Authored Date: [id number] Referring Provider CHRISTIAN Soria Sarah A Chief Complaint headache and dizziness, some chest discomfort that feels like burning for the past month SOB , edema, numbness in his hand , CPAP every night History of Present Illness Mr. Medel presents for follow up of afib and history of embolic NH thought to be secondary to untreated afib without significant CAD on cath. He has left chest pain that is tender to palpation. He continues to have headaches. 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 He does think he is getting out of breath more easily. Review of Systems All other systems reviewed and negative except as discussed in the HPI Physical Exam Vitals & Measurements HR:81(Monitored) RR:18 BP:132/78 SpO2:97% Physical Examination General: Alert and oriented, No acute distress. Respiratory: Lungs are clear to auscultation, Respirations are non-labored. Cardiovascular: Normal rate, Regular rhythm, No murmur, No edema, no carotid bruits to auscultation bilaterally. Integumentary: Warm, Dry, [place] Neurologic: Alert, Oriented. Cognition and Speech: Speech clear and coherent. Psychiatric: Cooperative, Appropriate mood & affect. Assessment/Plan Impression: 1. Chronic afib s/p cardioversion about 8 years ago 2. s/p cardiac catheterization for NH 12/10/2020 showingright coronary artery with mild disease, left main with no disease, LAD with mild disease, left circumflex with mild disease, distal portion of second posterior lateral branch abrupt cut off, not amenable to PCI, lesion felt to be most consistent with embolization at the time patient was in A-fib and had not been on anticoagulation 3. Echocardiogram November 2020 with ejection fraction of 40 to 45%, then rebounded to normal 55% in 2022, most recent echo 2023with again reduced EF 45%, Global hypokinesis with no regional wall motion abnormalities, Mild prolapse of the posterior mitral valve leaflet with mild eccentric mitralregurgitation. 4. Bilateral lower extremity edema investigated with Doppler 02/09/2022 and was negative for DVT 5. CT of the brain for dizziness and headache which was negative, done February 08, 2022 Mr. Medel's chest pain is musculoskeletal. I did reviewed his most recent echo with him which shows that his EF is back to 45%. I discussed with him that I would like him to start Entresto and we reviewed benefits. He would likely qualifyfor financial assistance from [employer] if he decides to start this medicine. He would like to talk to his about it first. His rate is controlled in afib but with his reduction in EF, I think it would be reasonable to giveit a try keeping him in sinus rhythm. However, this may not be possible given his severely dilated atrium. I will place a consult for EP. He remains on anticoagulation for stroke prevention. His blood pressure is controlled. He returns to the clinic in July Problem List/Past Medical History Ongoing New onset of headaches after age 51 Medications aspirin(aspirin 81 mg oral delayed release tablet), 81 mg= 1 tab, PO, Daily, 3 refills atorvastatin(atorvastatin 80 mg oral tablet), 80 mg= 1 tab, PO, qhs, 3 refills ezetimibe(Zetia 10 mg oral tablet), 10 mg= 1 tab, PO, Daily, 3 refills furosemide(furosemide 20 mg oral tablet), See Instructions, 3 refills metoprolol(Metoprolol Succinate ER 50 mg oral tablet, extended release), 1 tab, PO, Daily pantoprazole(pantoprazole 40 mg oral delayed release tablet), 1 tab, PO, Daily rivaroxaban(rivaroxaban 20 mg oral tablet), 20 mg= 1 tab, PO, qPM, 3 refills Allergies NKA Social History Smoking Status Never smoked cigarettes Electronic Signature on File Electronically Reviewed/Signed by: CHRISTIAN Sheriff Author Signature Dt/Tm:02/08/2024 12:40 PM [facility] S[facility]
[2024-04-29 06:58] LABS: Basophils # (auto) 0.01 K/uL (0.00-0.20); Basophils % (auto) 0.1 %; Eosinophils # (auto) 0.08 K/uL (0.00-0.50); Eosinophils % (auto) 1.1 %; Hematocrit (blood only) 43.1 % (42.0-52.0); Hemoglobin 14.8 g/dl (14.0-18.0); Immature Granulocytes # (auto) 0.02 K/uL (0.01-0.20); Immature Granulocytes % (auto) 0.3 %; Lymphocytes # (auto) 2.18 K/uL (1.20-3.40); Lymphocytes % (auto) 29.7 %; Mean Corpuscular Hemoglobin 31.4 pg (25.0-34.0); Mean Corpuscular Hgb Conc 34.3 g/dL (32.0-36.0); Mean Corpuscular Volume 91.3 fL (80.0-100.0); Mean Platelet Volume 10.1 fL (9.4-12.4); Monocytes # (auto) 0.72 K/uL (0.11-0.59); Monocytes % (auto) 9.8 %; Neutrophils # (auto) 4.34 K/uL (1.40-6.50); Platelet Count 187 K/uL (130-400); RDW Coefficient of Variation 12.5 % (11.5-14.5); RDW Standard Deviation 41.3 fL (36.4-46.3); Red Blood Count 4.72 M/uL (4.70-6.10); White Blood Count 7.35 K/ul (4.8-10.8)
[2024-04-29 07:15] LABS: Albumin Level 3.8 gm/dl (3.4-5.0); BUN Creatinine Ratio 16.1 (10-20); Calcium 8.8 mg/dl (8.6-10.3); Creatinine Clr Calc Pharmacy 90.8 ml/min; Phosphorus 3.4 mg/dl (2.5-4.9); Potassium 3.7 mmol/L (3.5-5.1)
[2024-04-29 07:21] LABS: Troponin I High Sensitivity 4.2 pg/ml (0-20)
[2024-04-29] MEDS: METOPROLOL SUCC 50MG EXT REL TAB PO SCH (08:02)
[2024-04-29] MEDS: PANTOprazole 40 MG TAB PO SCH (08:03)
--- NOTE | 2024-04-29 08:44 | Electrocardiogram Report ---
Test Reason : Blood Pressure : */* mmHG Vent. Rate : 93 BPM Atrial Rate : * BPM P-R Int : * ms QRS Dur : 82 ms QT Int : 338 ms P-R-T Axes : * -32 26 degrees QTcB Int : 420 ms Atrial fibrillation Left axis deviation Possible Inferior infarct (cited on or before 11-Sep-2022) Abnormal ECG When compared with ECG of 11-Sep-2022 18:05, No significant change was found Confirmed by Bob Kwon ([id number]) on 04/29/2024 8:44:23 AM Referred By: REFERRED SELF Confirmed By: Bob Kwon
--- NOTE | 2024-04-29 08:50 | Electrocardiogram Report ---
Test Reason : Blood Pressure : */* mmHG Vent. Rate : 104 BPM Atrial Rate : 111 BPM P-R Int : * ms QRS Dur : 80 ms QT Int : 304 ms P-R-T Axes : * -34 19 degrees QTcB Int : 399 ms Atrial fibrillation with rapid ventricular response Left axis deviation Inferior infarct (cited on or before 11-Sep-2022) Abnormal ECG When compared with ECG of 28-Apr-2024 17:41, (unconfirmed) No significant change was found Confirmed by Bob Kwon ([id number]) on 04/29/2024 8:50:33 AM Referred By: REFERRED SELF Confirmed By: Bob Kwon
--- NOTE | 2024-04-29 10:31 | XCELERA ---
[id number] \\[email or web address]\[id number]
[2024-04-29 10:47] VITALS: BP 123/77; PULSE 75; RESP 19; TEMP 97.5; O2SAT 96
--- NOTE | 2024-04-29 15:49 | Discharge Summary ---
Discharge Summary Date of Service April 29, 2024 Principal Dx & Hospital Course #1 = Principal Diagnosis (1) Chest pain: Elevated troponin/chest pain/dyspnea on exertion/chronic atrial fibrillation/EF 45%- Stress echo did not show RWMA, but EF did not augment, discussed with cardiology team outpt providers, will d/c with close follow up The patient r serial cardiac enzymes are normal serial EKG's without acute current of injury, , cardiac rhythm monitoring shows rate controlled afib . Continue metoprolol succinate 50 mg every morning, Xarelto 20 mg every evening, and aspirin 81 mg every evening-> refer to outpt cardiology for further workup (2) Atrial fibrillation: (3) Hyperlipidemia LDL goal <70: (4) Obesity (BMI 30-39.9): (5) GERD (gastroesophageal reflux disease): Admission HPI Per Admitting Provider The patient is a 64-year-old male with a known past medical history including atrial fibrillation on Xarelto, GERD, hypertension, hyperlipidemia and morbid obesity. He presents to the emergency department after being told that he had elevated troponin of 24, that was performed at [facility] this morning, due to his history of atrial fibrillation, chest pain, shortness of breath, dyspnea on exertion. He had gone to [facility] for second opinion regarding a potential ablation procedure. He had previously been seen by Dr. Ferrell of [facility] on 03/20/2024. He reports that he has had fatigue, and progressive shortness of breath with dyspnea on exertion over the past 2 to 3 weeks. He does report that he has had chest discomfort intermittently over the past few months. He has had and intentional 10 pound weight loss over the past 6 weeks, by eating less. Discharge Exam Patient is in a regular rate controlled rhythm he is got no cardiac murmurs he is not short of breath Lungs are clear without wheezes or crackles Extremities are without edema Discharge Plan Discharge Items Patient Disposition: Home - Self-Care Reason For Visit: CHEST PAIN, DUNN, ELEVATED TROPONIN Discharge Diagnosis: chest pain normal troponin I levels non diagnostic stress test Activity: Resume your previous activity Non-emergency contact: Primary Care Provider and Director Recreation Call non-emergency contact if: your symptoms worsen Follow-up/Referrals: SHARLA DELGADO [Other] Diet: Heart Healthy Addtl Attending Provider Instructions: [facility] office notified of stress test results, they will be in contact with for follow up and further testing if indicated Pending Studies at Discharge: No Stand-Alone Forms: [facility], Smoking Cessation Medications and DC Order Prescriptions: Continued atorvastatin 80 mg tablet 80 mg PO HS metoprolol succinate 50 mg tablet extended release 24 hr 50 mg PO QAM pantoprazole 40 mg tablet,delayed release (DR/EC) 40 mg PO QAM Xarelto 20 mg Tablet 20 mg PO QPM Rx Instructions: must administer with evening meal aspirin 81 mg Tablet,Delayed Release (Dr/Ec) 81 mg PO QPM Discharge Orders: Discharge Order (Routine); Ordered 04/29/24 Ordered By: Cesar Dsouza Admission Data Admit Date/Time: 04/28/24 21:22 Attending Provider: Cesar Dsouza Admit Provider: Alan Hays Primary Care Provider: Sharla Soria Other Providers: Alan Hays Other Interventions: Discharge Summary Assessment (RN) Last Done: 04/29/24 12:53 Hospital Stay Data Consultations 04/28/24 19:57 ED Decision to Admit Stat Pending Results Patient Have Any Pending Studies at Discharge: No Discharge Instructions Given to Patient (Per Discharging Provider) [facility] office notified of stress test results, they will be in contact with for follow up and further testing if indicated Total Time Total Time Spent Total Time Spent (In Minutes): Discharge 30 including a call to [facility] cardiology office Coding Level of Care Code 74523 INP/OBS DISCH >30 MIN Diagnoses Chest pain R07.9 Atrial fibrillation I48.91 Hyperlipidemia LDL goal <70 E78.5 Obesity (BMI 30-39.9) E66.9 GERD (gastroesophageal reflux disease) K21.9
[2024-04-29] MEDS ORDERED: RIVAROXABAN 20 MG TAB PO SCH (16:30)
[2024-04-29] MEDS ORDERED: ASPIRIN 81 MG ECTAB PO SCH (21:00)
[2024-04-29] MEDS ORDERED: ATORVASTATIN 40 MG TAB PO SCH (21:00)
== END 2024-04-29 13:08 | disposition home or self-care (01) ==
LOC: ED 16:52 → 2E 16:52 → SUATTDRO 21:22 → 2E 23:14